=== PATIENT | female | born 1995 ===

== ENCOUNTER → 2018-06-06 | Outpatient (REF) | LOC: M LAB REF 10:34 | PROVIDERS: ATTEND Obstetrics & Gynecology Obstetrics | DX: Z36.89 Encounter for other specified antenatal screening (principal) ==

== ENCOUNTER → 2018-09-11 | Outpatient (REF) | payer OTHER | LOC: M LAB LCGH 13:34 | PROVIDERS: ATTEND Obstetrics & Gynecology | DX: Z12.4 Encounter for screening for malignant neoplasm of cervix (principal); Z39.2 Encounter for routine postpartum follow-up ==